=== PATIENT | male | born 1930 | race Caucasian/White ===

== ENCOUNTER 2017-05-05 14:43 | Inpatient (IN) | payer BC ==
[2017-05-05 15:12] LABS: AGAP ISTAT 21 mmol/L (6-14); BUN ISTAT 30 mg/dL (8-26); CHLORIDE ISTAT 103 mmol/L (98-110); CREATININE ISTAT 1.5 mg/dL (0.5-1.4); GLUCOSE ISTAT 110 mg/dL (70-99); HEMATOCRIT ISTAT 42 % (37-52); HEMOGLOBIN ISTAT 14.3 g/dL (14-18); ION CA ISTAT 1.26 mmol/L (1.13-1.32); POTASSIUM ISTAT 4.3 mmol/L (3.5-5.0); SODIUM ISTAT 143 mmol/L (135-145); TOT CO2 ISTAT 25 mmol/L (23-32)
[2017-05-05 15:15] LABS: ADD MAN DIFF? NO
[2017-05-05 15:18] LABS: BASO % 1 % (0-3); EOS # 0.2 x10^3/uL (0.0-0.7); EOS % 2 % (0-3); HEMATOCRIT 42.3 % (39.0-53.0); HEMOGLOBIN 14.4 g/dL (13.0-17.5); LYMPH # 1.8 x10^3/uL (1.0-4.8); LYMPH % 23 % (24-48); MEAN CORPUSCULAR HEMOGLOBIN 33 pg (25-35); MEAN CORPUSCULAR HGB CONC 34 g/dL (31-37); MEAN CORPUSCULAR VOLUME 95 fL (79-100); MONO % 12 % (0-9); NEUT # 5.1 x10^3uL (1.8-7.7); NEUT % 63 % (31-73); PLATELET COUNT 186 x10^3/uL (140-400); RED BLOOD COUNT 4.44 x10^6/uL (4.30-5.70); RED CELL DISTRIBUTION WIDTH 13.6 % (11.5-14.5); WHITE BLOOD COUNT 8.1 x10^3/uL (4.0-11.0)
[2017-05-05 15:24] LABS: PARTIAL THROMBOPLASTIN TIME 26 SEC (24-38); PROTHROMBIN TIME PATIENT 12.9 SEC (11.7-14.0)
[2017-05-05] MEDS: IV NORMAL SALINE 1000ML BAG 1,000 ML IV ×2 (15:25→16:47)
[2017-05-05 15:27] LABS: ANION GAP 10 (6-14); BLOOD UREA NITROGEN 31 mg/dL (8-26); BUN/CREATININE RATIO 22 (6-20); CALCIUM 9.9 mg/dL (8.5-10.1); CARBON DIOXIDE 27 mmol/L (21-32); CHLORIDE 103 mmol/L (98-107); CREATININE 1.4 mg/dL (0.7-1.3); GFR 48.3; GLUCOSE 113 mg/dL (70-99); POTASSIUM 4.2 mmol/L (3.5-5.1); SODIUM 140 mmol/L (136-145)
[2017-05-05] MEDS ORDERED: CONTRAST GIVEN MC (15:30)
[2017-05-05 15:33] LABS: ALBUMIN 3.9 g/dL (3.4-5.0); ALK PHOS 94 U/L (46-116); ALT (SGPT) 35 U/L (16-63); AST (SGOT) 21 U/L (15-37); MAGNESIUM 1.9 mg/dL (1.8-2.4); TOTAL BILIRUBIN 0.4 mg/dL (0.2-1.0); TOTAL PROTEIN 7.8 g/dL (6.4-8.2)
[2017-05-05] MEDS: IOHEXOL 300 MG/ML 100ML VIAL. IV (15:35)
[2017-05-05 15:55] LABS: BILIRUBIN,URINE NEGATIVE (NEG); CLARITY,URINE CLEAR; COLOR,URINE YELLOW; GLUCOSE,URINE NEGATIVE (NEG); NITRITE,URINE NEGATIVE (NEG); PH,URINE 5.5; PROTEIN,URINE NEGATIVE (NEG-TRACE); UROBILINOGEN,URINE 0.2 mg/dL (0.2 mg/dL)
[2017-05-05 16:17] LABS: BACTERIA,URINE 0 /HPF (0-FEW)
[2017-05-05 16:18] LABS: GRANULAR CASTS,URINE OCCASIONAL /HPF; HYALINE CASTS, URINE MANY /HPF
[2017-05-05] MEDS ORDERED: ACETAMINOPHEN 325 MG TABLET. PO ×2 (16:30→17:00)
[2017-05-05] MEDS ORDERED: ACETAMINOPHEN 650 MG SUPP.RECT. PR (16:30)
[2017-05-05] MEDS ORDERED: LABETALOL 20 MG/4 ML DISP.SYRIN. IVP (16:30)
[2017-05-05] MEDS ORDERED: IV NORMAL SALINE 1000ML BAG 1,000 ML IV (16:56)
[2017-05-05] MEDS ORDERED: ONDANSETRON PF 4 MG/2 ML VIAL. IV (17:00)
[2017-05-05] MEDS ORDERED: DEXTROSE 50% 25 GM / 50ML DISP.SYRIN. IV (17:45)
[2017-05-05 17:49] LABS: POC GLUCOSE 102 mg/dL (70-99)
[2017-05-05] MEDS: SIMVASTATIN 10 MG TABLET PO (20:19)
[2017-05-05] MEDS: ENOXAPARIN 30 MG/0.3 ML SYRINGE. SQ (20:48)
[2017-05-05 21:21] LABS: POC GLUCOSE 103 mg/dL (70-99)
[2017-05-06] MEDS: IV NORMAL SALINE 1000ML BAG 1,000 ML IV ×3 (02:28→22:28)
[2017-05-06 05:25] LABS: ADD MAN DIFF? NO
[2017-05-06 05:34] LABS: BASO % 0 % (0-3); EOS # 0.2 x10^3/uL (0.0-0.7); EOS % 3 % (0-3); HEMATOCRIT 38.1 % (39.0-53.0); HEMOGLOBIN 13.1 g/dL (13.0-17.5); LYMPH # 1.7 x10^3/uL (1.0-4.8); LYMPH % 24 % (24-48); MEAN CORPUSCULAR HEMOGLOBIN 32 pg (25-35); MEAN CORPUSCULAR HGB CONC 34 g/dL (31-37); MEAN CORPUSCULAR VOLUME 94 fL (79-100); MONO # 0.8 x10^3/uL (0.0-1.1); MONO % 11 % (0-9); NEUT # 4.2 x10^3uL (1.8-7.7); NEUT % 61 % (31-73); PLATELET COUNT 138 x10^3/uL (140-400); RED BLOOD COUNT 4.04 x10^6/uL (4.30-5.70); RED CELL DISTRIBUTION WIDTH 13.6 % (11.5-14.5); WHITE BLOOD COUNT 6.9 x10^3/uL (4.0-11.0)
[2017-05-06 06:22] LABS: ANION GAP 9 (6-14); BLOOD UREA NITROGEN 24 mg/dL (8-26); CALCIUM 8.5 mg/dL (8.5-10.1); CARBON DIOXIDE 25 mmol/L (21-32); CHLORIDE 106 mmol/L (98-107); CHOLESTEROL 136 mg/dL (0-200); GFR 71.2; GLUCOSE 108 mg/dL (70-99); HDLC 25 mg/dL (40-60); LDLC 81 mg/dL (0-100); NON-HDL CHOLESTEROL 111 mg/dL (0-129); POTASSIUM 3.6 mmol/L (3.5-5.1); SODIUM 140 mmol/L (136-145); TRIGLYCERIDES 149 mg/dL (0-150); VLDLC 30 mg/dL (0-40)
[2017-05-06 06:23] LABS: CHOLESTEROL/HDL RATIO 5.4
[2017-05-06 08:26] LABS: POC GLUCOSE 105 mg/dL (70-99)
[2017-05-06] MEDS: ASPIRIN 325 MG TABLET PO (10:27)
[2017-05-06] MEDS: hydroCHLOROthiazide 12.5 MG CAPSULE PO (10:27)
[2017-05-06] MEDS: METOPROLOL SUCC 24HR ER 50 MG TAB.ER.24H. PO (10:28)
[2017-05-06] MEDS ORDERED: BARIUM SULFATE 40% (APPLE) 148 GM PWD. PO (11:45)
[2017-05-06 12:16] LABS: POC GLUCOSE 146 mg/dL (70-99)
[2017-05-06] MEDS: risperiDONE 0.25 MG TABLET. PO ×2 (14:30→20:42)
[2017-05-06] MEDS: ENOXAPARIN 40 MG/0.4 ML SYRINGE. SQ (16:00)
[2017-05-06] MEDS: HALOPERIDOL LACTATE 5 MG/ML VIAL. IVP (16:00)
[2017-05-06 19:50] LABS: POC GLUCOSE 103 mg/dL (70-99)
[2017-05-06] MEDS: ATORVASTATIN CALCIUM 10 MG TABLET. PO (20:42)
[2017-05-07 05:07] LABS: ADD MAN DIFF? NO
[2017-05-07 05:26] LABS: BASO % 0 % (0-3); EOS # 0.1 x10^3/uL (0.0-0.7); EOS % 2 % (0-3); HEMATOCRIT 38.1 % (39.0-53.0); HEMOGLOBIN 13.1 g/dL (13.0-17.5); LYMPH # 1.2 x10^3/uL (1.0-4.8); LYMPH % 20 % (24-48); MEAN CORPUSCULAR HEMOGLOBIN 32 pg (25-35); MEAN CORPUSCULAR HGB CONC 34 g/dL (31-37); MEAN CORPUSCULAR VOLUME 94 fL (79-100); MONO # 0.8 x10^3/uL (0.0-1.1); MONO % 14 % (0-9); NEUT # 3.9 x10^3uL (1.8-7.7); NEUT % 64 % (31-73); PLATELET COUNT 144 x10^3/uL (140-400); RED BLOOD COUNT 4.04 x10^6/uL (4.30-5.70); RED CELL DISTRIBUTION WIDTH 13.4 % (11.5-14.5); WHITE BLOOD COUNT 6.1 x10^3/uL (4.0-11.0)
[2017-05-07 05:53] LABS: ALBUMIN 3.4 g/dL (3.4-5.0); ALK PHOS 86 U/L (46-116); ALT (SGPT) 18 U/L (16-63); ANION GAP 11 (6-14); AST (SGOT) 22 U/L (15-37); BLOOD UREA NITROGEN 18 mg/dL (8-26); BUN/CREATININE RATIO 16 (6-20); CALCIUM 9.2 mg/dL (8.5-10.1); CARBON DIOXIDE 24 mmol/L (21-32); CHLORIDE 102 mmol/L (98-107); CREATININE 1.1 mg/dL (0.7-1.3); GFR 63.8; GLUCOSE 115 mg/dL (70-99); POTASSIUM 3.4 mmol/L (3.5-5.1); SODIUM 137 mmol/L (136-145); TOTAL BILIRUBIN 0.7 mg/dL (0.2-1.0); TOTAL PROTEIN 6.9 g/dL (6.4-8.2)
[2017-05-07] MEDS: IV NORMAL SALINE 1000ML BAG 1,000 ML IV ×2 (07:55→18:28)
[2017-05-07 09:21] LABS: POC GLUCOSE 129 mg/dL (70-99)
[2017-05-07 11:56] LABS: POC GLUCOSE 143 mg/dL (70-99)
[2017-05-07] MEDS: BARIUM SULFATE 40% (APPLE) 148 GM PWD. PO (13:08)
[2017-05-07] MEDS: METOPROLOL SUCC 24HR ER 50 MG TAB.ER.24H. PO (14:21)
[2017-05-07] MEDS: ASPIRIN 325 MG TABLET PO (14:21)
[2017-05-07] MEDS: hydroCHLOROthiazide 12.5 MG CAPSULE PO (14:21)
[2017-05-07] MEDS: ENOXAPARIN 40 MG/0.4 ML SYRINGE. SQ (14:54)
[2017-05-07] MEDS: metFORMIN 500 MG TABLET PO (17:00)
[2017-05-07 20:46] LABS: POC GLUCOSE 123 mg/dL (70-99)
[2017-05-07 20:46] LABS: POC GLUCOSE 136 mg/dL (70-99)
[2017-05-07] MEDS: ATORVASTATIN CALCIUM 10 MG TABLET. PO (20:57)
[2017-05-08] MEDS: IV NORMAL SALINE 1000ML BAG 1,000 ML IV ×2 (04:28→14:00)
[2017-05-08 08:17] LABS: POC GLUCOSE 105 mg/dL (70-99)
[2017-05-08] MEDS: hydroCHLOROthiazide 12.5 MG CAPSULE PO (09:12)
[2017-05-08] MEDS: ASPIRIN 325 MG TABLET PO (09:12)
[2017-05-08] MEDS: metFORMIN 500 MG TABLET PO (09:12)
[2017-05-08] MEDS: METOPROLOL SUCC 24HR ER 50 MG TAB.ER.24H. PO (09:12)
[2017-05-08 12:04] LABS: POC GLUCOSE 133 mg/dL (70-99)
== END 2017-05-08 14:16 | DRG 64 ==
LOC: ER 14:43 → 6 SOUTH 16:15
PROVIDERS: Family Medicine
DX: I63.9 Cerebral infarction, unspecified (principal); G93.40 Encephalopathy, unspecified; E11.9 Type 2 diabetes mellitus without complications; G30.9 Alzheimer's disease, unspecified; F02.80 Dementia in other diseases classified elsewhere, unspecified severity, without behavioral disturbance, psychotic disturbance, mood disturbance, and anxiety; I71.4 Abdominal aortic aneurysm, without rupture; Z86.73 Personal history of transient ischemic attack (TIA), and cerebral infarction without residual deficits; I10 Essential (primary) hypertension; I25.10 Atherosclerotic heart disease of native coronary artery without angina pectoris; E78.00 Pure hypercholesterolemia, unspecified; I25.2 Old myocardial infarction; E78.5 Hyperlipidemia, unspecified; G83.9 Paralytic syndrome, unspecified; R29.810 Facial weakness; R13.10 Dysphagia, unspecified
CPT/HCPCS: 36415; 70450; 70496; 70498; 70551; 74230; 80047; 80048; 80053; 80061; 81001; 82962; 83735; 85025; 85610; 85730; 92526-GN; 92610-GN; 92611-GN; 93005; 93306; 96360; 97110-GP; 97116-GP; 97162-GP; 97166-GO; 99291; 99291-25; J1650; J7030; Q9967

== ENCOUNTER 2017-11-11 10:49 | Emergency (ER) | payer BC ==
[~2017-11-11] VITALS: Ht 175.3 cm; Wt 75.7 kg
[~2017-11-11 10:49] MED LIST: ATEN100T PO; HYDR12.58 PO; LOVA40TA2 PO; METF500T5 PO; METO50TA29 PO
[2017-11-11 11:11] LABS: BASO # 0.1 x10^3/uL (0.0-0.2); BASO % 1 % (0-3); EOS # 0.2 x10^3/uL (0.0-0.7); EOS % 2 % (0-3); HEMATOCRIT 47.5 % (39.0-53.0); HEMOGLOBIN 16.2 g/dL (13.0-17.5); LYMPH # 1.9 x10^3/uL (1.0-4.8); LYMPH % 17 % (24-48); MEAN CORPUSCULAR HEMOGLOBIN 32 pg (25-35); MEAN CORPUSCULAR HGB CONC 34 g/dL (31-37); MEAN CORPUSCULAR VOLUME 94 fL (79-100); MONO # 0.8 x10^3/uL (0.0-1.1); MONO % 8 % (0-9); NEUT # 8.2 x10^3uL (1.8-7.7); NEUT % 73 % (31-73); PLATELET COUNT 218 x10^3/uL (140-400); RED BLOOD COUNT 5.03 x10^6/uL (4.30-5.70); RED CELL DISTRIBUTION WIDTH 14.4 % (11.5-14.5); WHITE BLOOD COUNT 11.2 x10^3/uL (4.0-11.0)
[2017-11-11] MEDS ORDERED: IV NORMAL SALINE 1000ML BAG 1,000 ML IV ONE (11:15)
[2017-11-11 11:21] LABS: CALCIUM 10.1 mg/dL (8.5-10.1); CREATININE 1.3 mg/dL (0.7-1.3); GFR 52.6; POTASSIUM 4.2 mmol/L (3.5-5.1)
[2017-11-11 11:27] LABS: ALBUMIN 4.1 g/dL (3.4-5.0); ALBUMIN/GLOBULIN RATIO 1.2 (1.0-1.7); MAGNESIUM 1.9 mg/dL (1.8-2.4); TOTAL BILIRUBIN 1.2 mg/dL (0.2-1.0); TOTAL PROTEIN 7.5 g/dL (6.4-8.2)
--- NOTE | 2017-11-11 11:39 | RAD ---
EXAM: 1. AP, radial head and lateral views of the left elbow 2. 3 views left shoulder DATE: 11/11/2017 11:13 AM INDICATION: Pt fell 1 month ago per family, having pain in elbow and shoulder COMPARISON: No Prior FINDINGS: Left elbow: Suboptimal lateral projection limits evaluation for joint effusion. Within these constraints no definite joint effusion is seen. No evidence for acute fracture or dislocation. Mild soft tissue swelling is seen dorsally adjacent to the olecranon enthesophyte. Left shoulder: No evidence of acute fracture or dislocation. Moderate soft tissue swelling is seen about the left AC joint. Decreased bone mineral density. IMPRESSION: 1. No evidence for left elbow or left shoulder fracture. 2. Olecranon enthesopathy. 3. Left AC joint degenerative change. Electronically signed by: Crow Arriaga MD (11/11/2017 11:35 AM) [id number]
[2017-11-11 13:05] LABS: BILIRUBIN,URINE SMALL (NEG); CLARITY,URINE CLEAR; COLOR,URINE AMBER; NITRITE,URINE NEGATIVE (NEG); PROTEIN,URINE 30 mg/dL (NEG-TRACE)
[2017-11-11 13:07] LABS: BACTERIA,URINE 0 /HPF (0-FEW); RBC,URINE RARE /HPF (0-2); SQUAMOUS EPITHELIAL CELL,UR FEW /LPF; WBC,URINE RARE /HPF (0-4)
--- NOTE | 2017-11-11 13:32 | EKG ---
[facility] [address] [place] [address] Test Date: 2017-11-11 Test Time: 11:00:09 Pat Name: CASTILLO GARDNER Department: Room: Gender: M Diploma Pharmacy Technician: : [id number] Requested By: KISHORE CASILLAS Order Number: [id number] Reading MD: Galen Gatica MD Measurements Intervals [place] Rate: 98 P: 50 NM: 184 QRS: -44 QRSD: 100 T: 49 QT: 348 QTc: 446 Interpretive Statements SINUS RHYTHM VENTRICULAR PREMATURE COMPLEX(ES) Electronically Signed On 11-12-2017 7:40:12 CDT by Galen Gatica MD
--- NOTE | 2017-11-11 13:53 | PHYS DOC ---
Past Medical History Past Medical History: CAD, CVA, High Cholesterol, Hypertension, Stroke Past Surgical History: Angioplasty Alcohol Use: Occasionally Drug Use: None Adult General Chief Complaint Chief Complaint: WEAKNESS/GENERALIZED HPI HPI Patient is an 86-year-old male who presents via EMS after reportedly falling early this morning. Patient's [id number] indicates that when she got to his house to bring him breakfast, she had noticed that he had fallen. Patient was feeling weak and medics were called for assistance in getting patient up. Medics indicate that patient was able to ambulate with minimal assistance. They did indicate the patient was a little bit wobbly on his feet when he was walking however. Patient does complain of pain in his left elbow and left shoulder from an injury from 3 weeks ago. Patient had no head injury and no loss of consciousness. He denies any chest pain or shortness of breath. Patient' s ibyqmz-on-mvn indicates the patient has been having a decreased appetite over the last few years due to his passing away. She does indicate that he drinks a little bit more alcohol and thinks that that might be why he eats less. Review of Systems Review of Systems Constitutional: Denies fever or chills [] Respiratory: Denies cough or shortness of breath [] Cardiovascular: Denies chest pain[] GI: Denies abdominal pain, nausea, vomiting or diarrhea [] Musculoskeletal: Complains of left elbow and left shoulder pain[] Integument: Denies rash or skin lesions [] Neurologic: Denies headache, focal weakness or sensory changes [] All other systems were reviewed and found to be within normal limits, except as documented in this note. Current Medications Current Medications Current Medications Medications (Trade) Dose Ordered Sig/Esperanza Start Time Stop Time Status Last Admin Dose Admin Sodium Chloride 1,000 ml @ 1,000 mls/hr 1X ONCE 11/11/17 11:15 11/11/17 12:14 DC 11/11/17 11:09 1,000 MLS/HR Allergies Allergies Allergies Coded Allergies Type Severity Reaction Last Updated Verified No Known Drug Allergies 05/05/17 No Physical Exam Physical Exam Constitutional: Well developed, well nourished, no acute distress, non-toxic appearance. [] HENT: Normocephalic, atraumatic, bilateral external ears normal, oropharynx moist, no oral exudates, nose normal. [] Eyes: PERRLA, EOMI, conjunctiva normal, no discharge. [] Neck: Normal range of motion, no tenderness, supple, no stridor. [] Cardiovascular:Heart rate regular rhythm [] Lungs & Thorax: Bilateral breath sounds clear to auscultation [] Abdomen: Bowel sounds normal, soft, no tenderness. [] Skin: Warm, dry, no erythema, no rash. [] Extremities: Left elbow demonstrates abrasion that is healing well. There is tenderness to palpation to the elbow. Left shoulder demonstrates slightly decreased range of motion due to pain but no palpable deformity/abnormality noted. [] Neurologic: Awake and alert, normal motor function, normal sensory function, no focal deficits noted. [] Current Patient Data Vital Signs Vital Signs Date Time Temp Pulse Resp B/P (MAP) Pulse Ox O2 Delivery O2 Flow Rate FiO2 11/11/17 13:22 74 26 95 11/11/17 10:49 98.3 178/98 (124) Room Air 98.3 Lab Values Laboratory Tests Test 11/11/17 11:05 11/11/17 12:27 White Blood Count 11.2 x10^3/uL (4.0-11.0) H Red Blood Count 5.03 x10^6/uL (4.30-5.70) Hemoglobin 16.2 g/dL (13.0-17.5) Hematocrit 47.5 % (39.0-53.0) Mean Corpuscular Volume 94 fL (79-100) Mean Corpuscular Hemoglobin 32 pg (25-35) Mean Corpuscular Hemoglobin Concent 34 g/dL (31-37) Red Cell Distribution Width 14.4 % (11.5-14.5) Platelet Count 218 x10^3/uL (140-400) Neutrophils (%) (Auto) 73 % (31-73) Lymphocytes (%) (Auto) 17 % (24-48) L Monocytes (%) (Auto) 8 % (0-9) Eosinophils (%) (Auto) 2 % (0-3) Basophils (%) (Auto) 1 % (0-3) Neutrophils # (Auto) 8.2 x10^3uL (1.8-7.7) H Lymphocytes # (Auto) 1.9 x10^3/uL (1.0-4.8) Monocytes # (Auto) 0.8 x10^3/uL (0.0-1.1) Eosinophils # (Auto) 0.2 x10^3/uL (0.0-0.7) Basophils # (Auto) 0.1 x10^3/uL (0.0-0.2) Sodium Level 137 mmol/L (136-145) Potassium Level 4.2 mmol/L (3.5-5.1) Chloride Level 99 mmol/L (98-107) Carbon Dioxide Level 27 mmol/L (21-32) Anion Gap 11 (6-14) Blood Urea Nitrogen 19 mg/dL (8-26) Creatinine 1.3 mg/dL (0.7-1.3) Estimated GFR (Cockcroft-Gault) 52.6 BUN/Creatinine Ratio 15 (6-20) Glucose Level 172 mg/dL (70-99) H Calcium Level 10.1 mg/dL (8.5-10.1) Magnesium Level 1.9 mg/dL (1.8-2.4) Total Bilirubin 1.2 mg/dL (0.2-1.0) H Aspartate Amino Transferase (AST) 43 U/L (15-37) H Alanine Aminotransferase (ALT) 29 U/L (16-63) Alkaline Phosphatase 88 U/L (46-116) Troponin I Quantitative < 0.017 ng/mL (0.000-0.055) Total Protein 7.5 g/dL (6.4-8.2) Albumin 4.1 g/dL (3.4-5.0) Albumin/Globulin Ratio 1.2 (1.0-1.7) Ethyl Alcohol Level < 10 mg/dL (0-10) Urine Collection Type Void Urine Color Mia Urine Clarity Clear Urine pH 6.0 Urine Specific [place] 1.025 Urine Protein 30 mg/dL (NEG-TRACE) Urine Glucose (UA) Negative mg/dL (NEG) Urine Ketones (Stick) 40 mg/dL (NEG) Urine Blood Negative (NEG) Urine Nitrite Negative (NEG) Urine Bilirubin Small (NEG) Urine Urobilinogen Dipstick 1.0 mg/dL (0.2 mg/dL) Urine Leukocyte Esterase Negative (NEG) Urine RBC Rare /HPF (0-2) Urine WBC Rare /HPF (0-4) Urine Squamous Epithelial Cells Few /LPF Urine Bacteria 0 /HPF (0-FEW) Urine Mucus Marked /LPF Laboratory Tests 11/11/17 11:05 Laboratory Tests 11/11/17 11:05 EKG EKG [] Interpretation Time: EKG demonstrates a normal sinus rhythm with rate of 98. There is a first-degree AV block. Radiology/Procedures Radiology/Procedures [] Impressions: X-ray imaging of left elbow and shoulder demonstrates no acute bony abnormalities. Course & Med Decision Making Course & Med Decision Making Pertinent Labs and Imaging studies reviewed. (See chart for details) [] Dragon Disclaimer Dragon Disclaimer This electronic medical record was generated, in whole or in part, using a voice recognition dictation system. Departure Departure Impression: Primary Impression: Generalized weakness Additional Impression: Left elbow contusion Disposition: HOME, SELF-CARE Condition: STABLE Referrals: ADI HARRISON MD (PCP) Patient Instructions: Contusion, Weakness Additional Instructions: Follow-up with primary care provider in the next few days. I would recommend use of walker at home. Problem Qualifiers Additional Impression: Left elbow contusion Encounter type: initial encounter Qualified Codes: S50.02XA - Contusion of left elbow, initial encounter KISHORE CASILLAS Jr. DO Nov 11, 2017 13:53
[2017-11-11 14:52] VITALS: BP 141/67
== END 2017-11-11 15:30 | disposition home or self-care (01) ==
LOC: ER 10:49
DX: S50.02XA Contusion of left elbow, initial encounter (principal); M25.512 Pain in left shoulder; R63.0 Anorexia; R53.1 Weakness; E78.00 Pure hypercholesterolemia, unspecified; I10 Essential (primary) hypertension; Z86.73 Personal history of transient ischemic attack (TIA), and cerebral infarction without residual deficits; I25.10 Atherosclerotic heart disease of native coronary artery without angina pectoris; Z95.5 Presence of coronary angioplasty implant and graft; W18.39XA Other fall on same level, initial encounter; Y93.89 Activity, other specified; Y92.89 Other specified places as the place of occurrence of the external cause; Y99.8 Other external cause status
CPT/HCPCS: 36415; 73030; 73080; 80053; 81001; 83735; 84484; 85025; 93005; 99285; G0480; J7030; 96360

== ENCOUNTER 2018-10-26 15:22 | Inpatient (IN) | payer BC, OTHER ==
[~2018-10-26] VITALS: Ht 172.7 cm; Wt 62.8 kg
[~2018-10-26 15:22] MED LIST changes: +ACET500T68 PO; +ASPI-612 PO; +ASPI325T8 PO; +CHOL500016 PO; +ESCITALOPRAM OX10 MG PO; +LORA0.5T96 PO; +METF500T16 PO; -METF500T5 PO; +METO-239 PO; +POTA20TA4 PO
--- NOTE | 2018-10-26 15:46 | PHYS DOC ---
Past Medical History Past Medical History: CAD, CVA, Diabetes-Type II, High Cholesterol, Hypertension, ID, Stroke Past Surgical History: Angioplasty Additional Past Surgical Histo: angioplasty Alcohol Use: Rarely Drug Use: None Adult General Chief Complaint Chief Complaint: WEAKNESS/GENERALIZED HPI HPI Patient is a 87 year old male, brought to the ER via EMS from his doctor's office with reports of n/v today and concerns of sepsis. Pt speaks very little [place]. He denies any complaints of pain at this time. He denies any shortness of breath. Per EMS pt has a hx of ID, CVA, HTN, and DM2. ROS Limited due to language barrier. Pt denies any pain, fever, and shortness of breath. 1700- per patient's sister, the patient speaks Japanese. She states that the patient has been very weak and not wanting to get out of bed recently. She states that he constantly soils his PMs and 90 he has redness to his right hip and right buttock. She denies any open sores, recent fevers, nausea, vomiting, diarrhea, or complaints of abdominal pain. She states that the patient has had a decreased appetite. Review of Systems Review of Systems Constitutional: Denies fever or chills [] Eyes: Denies change in visual acuity, redness, or eye pain [] HENT: Denies nasal congestion or sore throat [] Respiratory: Denies cough or shortness of breath [] Cardiovascular: No additional information not addressed in HPI [] GI: Denies abdominal pain, nausea, vomiting, bloody stools or diarrhea [] : Denies dysuria or hematuria [] Musculoskeletal: Denies back pain or joint pain [] Integument: Denies rash or skin lesions [] Neurologic: Denies headache, focal weakness or sensory changes [] Endocrine: Denies polyuria or polydipsia [] All other systems were reviewed and found to be within normal limits, except as documented in this note. Current Medications Current Medications Current Medications Medications (Trade) Dose Ordered Sig/Esperanza Start Time Stop Time Status Last Admin Dose Admin Ceftriaxone Sodium (Rocephin) 1 gm 1X ONCE 10/26/18 18:15 10/26/18 18:16 DC 10/26/18 19:22 1 GM Sodium Chloride 1,000 ml @ 1,000 mls/hr 1X ONCE 10/26/18 17:15 10/26/18 18:14 DC 10/26/18 17:44 1,000 MLS/HR Allergies Allergies Allergies Coded Allergies Type Severity Reaction Last Updated Verified No Known Drug Allergies 05/05/17 No Physical Exam Physical Exam Constitutional: Well developed, well nourished, no acute distress, non-toxic appearance. [] HENT: Normocephalic, atraumatic, bilateral external ears normal, oropharynx dry, no oral exudates, nose normal. [] Eyes: conjunctiva normal, no discharge. [] Neck: Normal range of motion, no stridor. [] Cardiovascular:Heart rate regular rhythm Lungs & Thorax: Bilateral breath sounds clear to auscultation [] Abdomen: Bowel sounds normal, soft, no tenderness, no masses, no pulsatile masses. [] Skin: Warm, dry, erythema noted to R hip and R buttock that blanches with palpation Back: No tenderness, no CVA tenderness. [] Extremities: No cyanosis, no clubbing, ROM intact, no edema. [] Neurologic: Alert and oriented X 3, no focal deficits noted. [] Psychologic: Affect normal, judgement normal, mood normal. [] Current Patient Data Vital Signs Vital Signs Date Time Temp Pulse Resp B/P (MAP) Pulse Ox O2 Delivery O2 Flow Rate FiO2 10/26/18 17:56 81 16 95 10/26/18 15:34 98.8 180/80 (113) Nasal Cannula 2.0 98.8 Lab Values Laboratory Tests Test 10/26/18 15:30 10/26/18 17:19 White Blood Count 11.9 x10^3/uL (4.0-11.0) H Red Blood Count 4.80 x10^6/uL (4.30-5.70) Hemoglobin 15.3 g/dL (13.0-17.5) Hematocrit 45.6 % (39.0-53.0) Mean Corpuscular Volume 95 fL (79-100) Mean Corpuscular Hemoglobin 32 pg (25-35) Mean Corpuscular Hemoglobin Concent 34 g/dL (31-37) Red Cell Distribution Width 14.0 % (11.5-14.5) Platelet Count 239 x10^3/uL (140-400) Neutrophils (%) (Auto) 79 % (31-73) H Lymphocytes (%) (Auto) 13 % (24-48) L Monocytes (%) (Auto) 7 % (0-9) Eosinophils (%) (Auto) 0 % (0-3) Basophils (%) (Auto) 1 % (0-3) Neutrophils # (Auto) 9.3 x10^3/uL (1.8-7.7) H Lymphocytes # (Auto) 1.5 x10^3/uL (1.0-4.8) Monocytes # (Auto) 0.8 x10^3/uL (0.0-1.1) Eosinophils # (Auto) 0.0 x10^3/uL (0.0-0.7) Basophils # (Auto) 0.1 x10^3/uL (0.0-0.2) Prothrombin Time 13.6 SEC (11.7-14.0) Prothrombin Time INR 1.1 (0.8-1.1) Activated Partial Thromboplast Time 26 SEC (24-38) Sodium Level 144 mmol/L (136-145) Potassium Level 4.0 mmol/L (3.5-5.1) Chloride Level 104 mmol/L (98-107) Carbon Dioxide Level 26 mmol/L (21-32) Anion Gap 14 (6-14) Blood Urea Nitrogen 26 mg/dL (8-26) Creatinine 1.8 mg/dL (0.7-1.3) H Estimated GFR (Cockcroft-Gault) 36.0 BUN/Creatinine Ratio 14 (6-20) Glucose Level 177 mg/dL (70-99) H Lactic Acid Level 4.0 mmol/L (0.4-2.0) *H Calcium Level 10.5 mg/dL (8.5-10.1) H Magnesium Level 1.7 mg/dL (1.8-2.4) L Total Bilirubin 1.0 mg/dL (0.2-1.0) Aspartate Amino Transferase (AST) 17 U/L (15-37) Alanine Aminotransferase (ALT) 19 U/L (16-63) Alkaline Phosphatase 96 U/L (46-116) Creatine Kinase 54 U/L (39-308) Creatine Kinase MB (Mass) 0.7 ng/mL (0.0-3.6) Creatine Kinase MB Relative Index % (0-4) Myoglobin 77 ng/mL (16-96) Troponin I Quantitative < 0.017 ng/mL (0.000-0.055) IY-Lyw-C-Type Natriuretic Peptide 439 pg/mL (0-449) Total Protein 8.3 g/dL (6.4-8.2) H Albumin 4.1 g/dL (3.4-5.0) Albumin/Globulin Ratio 1.0 (1.0-1.7) Lipase 90 U/L (73-393) Urine Collection Type U cath Urine Color Mia Urine Clarity Clear Urine pH 5.0 Urine Specific [place] 1.020 Urine Protein 30 mg/dL (NEG-TRACE) Urine Glucose (UA) Negative mg/dL (NEG) Urine Ketones (Stick) 15 mg/dL (NEG) Urine Blood Large (NEG) Urine Nitrite Negative (NEG) Urine Bilirubin Small (NEG) Urine Urobilinogen Dipstick 1.0 mg/dL (0.2 mg/dL) Urine Leukocyte Esterase Negative (NEG) Urine RBC >40 /HPF (0-2) Urine WBC 20-40 /HPF (0-4) Urine Squamous Epithelial Cells Few /LPF Urine Amorphous Sediment Present /HPF Urine Bacteria Moderate /HPF (0-FEW) Urine Hyaline Casts Few /HPF Urine Mucus Mod /LPF Laboratory Tests 10/26/18 15:30 Laboratory Tests 10/26/18 15:30 EKG EKG 1528- SR with prolonged HI, non-specific ST depression, rate 71, no STEMI read by Dr. Cruz[] Radiology/Procedures Radiology/Procedures PROCEDURE: CHEST AP ONLY EXAM: Chest, single view. HISTORY: Hypoxia. COMPARISON: 03/07/2012 FINDINGS: A frontal view of the chest is obtained. There is no infiltrate, pleural effusion or pneumothorax. There is suspected lower lobe predominant atelectasis. The heart is normal in size. There are calcified granulomas. IMPRESSION: No acute pulmonary finding. [] Course & Med Decision Making Course & Med Decision Making Pertinent Labs and Imaging studies reviewed. (See chart for details) dx uti, WEAKNESS, lactic acidosis Pt was given 1L of NS and 1 gm of IV rocephin in the ER. VSS. SIRS criteria not met. WBC 11.9, no bandemia; PT/INR normal, Pals Nurse 1.8, glucose 177, calcium 10.5, magnesium 1.7, BNP 439; UA 20-40 WBC, moderate bacteria, large blood, few squamous 1818- Spoke with DR. Shearer will admit patient for UTI, weakness, and lactic acidosis to med/surg, Pt does not meet SIRS criteria. Will add blood and urine myoglobin and 3 hour repeat of lactic acid. Blood cx x2 if fever over 100.5 [] Dragon Disclaimer Dragon Disclaimer This electronic medical record was generated, in whole or in part, using a voice recognition dictation system. Departure Departure Impression: Primary Impression: Lactic acidosis Additional Impressions: UTI (urinary tract infection) Weakness Disposition: 09 ADMITTED INPATIENT Admitting Physician: Ny Shearer Condition: STABLE Referrals: ADI HARRISON MD (PCP) Problem Qualifiers Additional Impressions: UTI (urinary tract infection) Urinary tract infection type: site unspecified Hematuria presence: with hematuria Qualified Codes: N39.0 - Urinary tract infection, site not specified; R31.9 - Hematuria, unspecified MATILDA BECK ORDER PACKER OR PACKAGER Oct 26, 2018 15:46
[2018-10-26 15:48] LABS: BASO # 0.1 x10^3/uL (0.0-0.2); BASO % 1 % (0-3); EOS % 0 % (0-3); HEMATOCRIT 45.6 % (39.0-53.0); HEMOGLOBIN 15.3 g/dL (13.0-17.5); LYMPH # 1.5 x10^3/uL (1.0-4.8); LYMPH % 13 % (24-48); MEAN CORPUSCULAR HEMOGLOBIN 32 pg (25-35); MEAN CORPUSCULAR HGB CONC 34 g/dL (31-37); MEAN CORPUSCULAR VOLUME 95 fL (79-100); MONO # 0.8 x10^3/uL (0.0-1.1); MONO % 7 % (0-9); NEUT # 9.3 x10^3/uL (1.8-7.7); NEUT % 79 % (31-73); PLATELET COUNT 239 x10^3/uL (140-400); WHITE BLOOD COUNT 11.9 x10^3/uL (4.0-11.0)
[2018-10-26 15:58] LABS: PROTHROMBIN TIME PATIENT 13.6 SEC (11.7-14.0)
--- NOTE | 2018-10-26 16:02 | RAD ---
EXAM: Chest, single view. HISTORY: Hypoxia. COMPARISON: 03/07/2012 FINDINGS: A frontal view of the chest is obtained. There is no infiltrate, pleural effusion or pneumothorax. There is suspected lower lobe predominant atelectasis. The heart is normal in size. There are calcified granulomas. IMPRESSION: No acute pulmonary finding. Electronically signed by: Mahsa Sykes MD (10/26/2018 3:59 PM) [place] [id number]
[2018-10-26 16:15] LABS: CALCIUM 10.5 mg/dL (8.5-10.1); CREATININE 1.8 mg/dL (0.7-1.3)
[2018-10-26 16:21] LABS: ALBUMIN 4.1 g/dL (3.4-5.0); MAGNESIUM 1.7 mg/dL (1.8-2.4); TOTAL PROTEIN 8.3 g/dL (6.4-8.2)
[2018-10-26] MEDS ORDERED: IV NORMAL SALINE 1000ML BAG 1,000 ML IV ONE (17:15)
[2018-10-26 17:41] LABS: BILIRUBIN,URINE SMALL (NEG); CLARITY,URINE CLEAR; COLOR,URINE AMBER; NITRITE,URINE NEGATIVE (NEG); PROTEIN,URINE 30 mg/dL (NEG-TRACE)
[2018-10-26 17:48] LABS: CREATINE KINASE 54 U/L (39-308)
[2018-10-26 18:01] LABS: AMORPHOUS SEDIMENT,UR PRESENT /HPF; BACTERIA,URINE MODERATE /HPF (0-FEW); RBC,URINE >40 /HPF (0-2); SQUAMOUS EPITHELIAL CELL,UR FEW /LPF; WBC,URINE 20-40 /HPF (0-4)
[2018-10-26 18:02] LABS: HYALINE CASTS, URINE FEW /HPF
[2018-10-26] MEDS ORDERED: cefTRIAXone IV Push 1 GM VIAL. IVP ONE (18:15)
[2018-10-26 20:36] VITALS: BP 151/55
[2018-10-26] MEDS ORDERED: DONE10TA7 PO (21:02)
[2018-10-26] MEDS ORDERED: ASPI-630 PO (21:02)
[2018-10-26] MEDS ORDERED: ACETAMINOPHEN 500 MG TABLET PO PRN (21:15)
[2018-10-26] MEDS: DONEPEZIL HCL 10 MG TABLET. PO SCH (22:27)
[2018-10-26] MEDS: IV NORMAL SALINE 1000ML BAG 1,000 ML IV SCH (22:27)
[2018-10-26 23:00] VITALS: BP 123/56
[2018-10-27 03:00] VITALS: BP 144/56
--- NOTE | 2018-10-27 06:19 | EKG ---
[facility] [address] [place] [address] Test Date: 2018-10-26 Test Time: 15:28:10 Pat Name: CASTILLO GARDNER Department: Room: Gender: M Procurement Engineer: : [id number] Requested By: MATILDA BECK Order Number: [id number] Reading MD: Measurements Intervals [place] Rate: 70 P: 59 GA: 246 QRS: -23 QRSD: 98 T: 49 QT: 410 QTc: 450 Interpretive Statements SINUS RHYTHM PROLONGED GA INTERVAL INDETERMINATE AXIS NON SPECIFIC ST DEPRESSION ABNORMAL ECG No previous ECG available for comparison
[2018-10-27 06:39] VITALS: BP 106/52
[2018-10-27] MEDS ORDERED: IV NORMAL SALINE 1000ML BAG 1,000 ML IV SCH (07:04)
[2018-10-27] MEDS ORDERED: LORazepam 0.5 MG TABLET PO PRN (07:15)
[2018-10-27] MEDS: ENOXAPARIN 30 MG/0.3 ML SYRINGE. SQ SCH (08:54)
[2018-10-27] MEDS: CHOLECALCIFEROL (VITAMIN D3) 5,000 UNIT CAPSULE PO SCH (08:54)
[2018-10-27] MEDS: CITALOPRAM 20 MG TABLET. PO SCH (08:54)
[2018-10-27] MEDS: POTASSIUM CHLORIDE 20 MEQ TABLET.ER. PO SCH (08:54)
[2018-10-27] MEDS: ASPIRIN CHEWABLE 81 MG TABLET. PO SCH (08:55)
[2018-10-27] MEDS: METOPROLOL SUCC 24HR ER 50 MG TAB.ER.24H. PO SCH (09:00)
--- NOTE | 2018-10-27 09:18 | NUR ---
IP: I was notified by nurse that Dr. Campa looked at skin pictures and diagnosed pt with probable scabies. Pt to be in contact precautions until 24 hours post treatment.
--- NOTE | 2018-10-27 09:33 | NUR ---
SW following pt for dc planning. Chart reviewed and pt lives home alone. PT/OT pending. SW will await for PT/OT recommendation to assess skilled needs.
[2018-10-27] MEDS: IV NORMAL SALINE 1000ML BAG 1,000 ML IV SCH (10:00)
[2018-10-27 11:00] VITALS: BP 108/44
--- NOTE | 2018-10-27 13:30 | HP ---
ADMIT DATE: ADMISSION HISTORY AND PHYSICAL CHIEF COMPLAINT: Weakness. HISTORY OF PRESENT ILLNESS AND HOSPITAL COURSE: This patient is an 87-year-old male who lives by himself, but is assisted and cared by a niece. He was found down for unknown period of time and came to the office for evaluation, was seen by Dr. Shearer and sent to the Emergency Room due to suspicions of rhabdomyolysis, renal failure and significant weakness with self-care deficits as well as suspected UTI. He was sent to the Emergency Room where he was evaluated and found to have evidence of acute renal failure as well as UTI. He was also found to have lactic acidosis. He was admitted for hydration, IV antibiotics and PT and OT modalities. PAST MEDICAL HISTORY: Significant for: 1. Hypertension. 2. Coronary artery disease. 3. Previous CVA. 4. Abdominal aortic aneurysm. 5. High cholesterol. 6. Type 2 diabetes. 7. Mild dementia. 8. Major depression. PAST SURGICAL HISTORY: The patient denies surgical history. History is obtained from chart. The patient is alert and oriented, but does have mild dementia. FAMILY HISTORY: Noncontributory. SOCIAL HISTORY: The patient has never smoked. He does not use alcohol. He is for the last 4 years. He has excellent support from neighborhood and niece. ALLERGIES: The patient has no known drug allergies. REVIEW OF SYSTEMS: The patient has had nearly 20-pound weight loss, has a baseline creatinine of 1.2. No fever, cough, congestion, leg swelling, or shortness of breath has been documented. PHYSICAL EXAMINATION: GENERAL: This is an alert -[place] male who was unable to communicate due to language barrier, but does have memory issues on previous exams. HEENT: Benign. NECK: Supple. CARDIAC: Regular rate and rhythm. LUNGS: Clear. ABDOMEN: Soft, nontender. EXTREMITIES: He had 2+ pulses without edema. NEUROLOGICAL: Showed no unilateral findings. ASSESSMENT: 1. Ipkaw-nl-lrhvcme renal failure. 2. Weight loss. 3. Debilitation. 4. Lactic acidosis. 5. Hypomagnesemia. 6. Hematuria, suspected urinary tract infection. PLAN: To proceed with IV hydration, PT and OT modalities, IV antibiotics and monitor the patient's symptoms. Proceed with long term and subsequent penitentiary care due to self-care deficits. ADI HARRISON MD DR: Andreina JOB#: [id number] / [id number]
[2018-10-27 15:00] VITALS: BP 123/56
[2018-10-27] MEDS: cefTRIAXone IV Push 1 GM VIAL. IVP SCH (18:04)
[2018-10-27 19:00] VITALS: BP 139/70
[2018-10-27] MEDS: DONEPEZIL HCL 10 MG TABLET. PO SCH (20:44)
[2018-10-27] MEDS: ATORVASTATIN CALCIUM 10 MG TABLET. PO SCH (20:44)
[2018-10-27 23:00] VITALS: BP 134/64
[2018-10-28 03:00] VITALS: BP 124/52
[2018-10-28 06:08] LABS: BASO % 1 % (0-3); EOS # 0.2 x10^3/uL (0.0-0.7); EOS % 2 % (0-3); HEMATOCRIT 34.8 % (39.0-53.0); HEMOGLOBIN 12.1 g/dL (13.0-17.5); LYMPH # 1.3 x10^3/uL (1.0-4.8); LYMPH % 16 % (24-48); MEAN CORPUSCULAR HEMOGLOBIN 33 pg (25-35); MEAN CORPUSCULAR HGB CONC 35 g/dL (31-37); MEAN CORPUSCULAR VOLUME 94 fL (79-100); MONO # 0.6 x10^3/uL (0.0-1.1); MONO % 7 % (0-9); NEUT # 5.7 x10^3/uL (1.8-7.7); NEUT % 74 % (31-73); PLATELET COUNT 148 x10^3/uL (140-400); RED BLOOD COUNT 3.71 x10^6/uL (4.30-5.70); RED CELL DISTRIBUTION WIDTH 13.9 % (11.5-14.5); WHITE BLOOD COUNT 7.8 x10^3/uL (4.0-11.0)
[2018-10-28 06:25] LABS: CALCIUM 8.9 mg/dL (8.5-10.1); CREATININE 1.1 mg/dL (0.7-1.3); GFR 63.6; POTASSIUM 3.5 mmol/L (3.5-5.1)
[2018-10-28 07:00] VITALS: BP 132/82
--- NOTE | 2018-10-28 08:24 | NUR ---
SW following pt. Spoke with pt's sister in law, Al regarding SNU, options and insurance coverage. Al chose [facility]. Referral faxed and pt acceptance/admission pending. Will continue to follow. Addendum: 10/28/18 at 1204 by TAMRA URIARTE SW following pt. PP declined to take pt stating pt needs LTC placement. Left a message to Pt's sister in , Al, phone: [phone] requesting a call back.
[2018-10-28] MEDS: POTASSIUM CHLORIDE 20 MEQ TABLET.ER. PO SCH (09:05)
[2018-10-28] MEDS: CITALOPRAM 20 MG TABLET. PO SCH (09:06)
[2018-10-28] MEDS: METOPROLOL SUCC 24HR ER 50 MG TAB.ER.24H. PO SCH (09:06)
[2018-10-28] MEDS: ASPIRIN CHEWABLE 81 MG TABLET. PO SCH (09:06)
[2018-10-28] MEDS: CHOLECALCIFEROL (VITAMIN D3) 5,000 UNIT CAPSULE PO SCH (09:06)
[2018-10-28] MEDS: ENOXAPARIN 30 MG/0.3 ML SYRINGE. SQ SCH (09:06)
[2018-10-28 11:00] VITALS: BP 130/60
[2018-10-28 15:00] VITALS: BP 117/54
--- NOTE | 2018-10-28 15:54 | NUR ---
SW following pt. Discussed with Pt's sister in law about other options and she [facility]. Referral faxed and pt is accepted. Insurance auth for SNU pending. Discussed with RN. Will continue to follow.
[2018-10-28] MEDS: cefTRIAXone IV Push 1 GM VIAL. IVP SCH (17:54)
[2018-10-28 19:00] VITALS: BP 157/61
--- NOTE | 2018-10-28 19:43 | PDOC ---
PROGRESS NOTES Subjective Subjective Patient improving. PT and OT modalities recommend skilled care. Objective Objective Vital Signs Date Time Temp Pulse Resp B/P (MAP) Pulse Ox O2 Delivery O2 Flow Rate FiO2 10/28/18 15:00 98.0 54 18 117/54 (75) 97 Nasal Cannula 2.0 98.0 Intake and Output 10/28/18 07:00 Intake Total 2950 ml Balance 2950 ml Intake Oral 1150 ml IV Total 1800 ml # Voids 4 Physical Exam Abdomen: Normal bowel sounds Heart: Regular rate Extremities: No edema General: Alert Lungs: Clear to auscultation Assessment Assessment Problems Medical Problems: (1) Acute on chronic renal failure Status: Acute (2) Altered mental status Status: Acute (3) Debilitated Status: Chronic (4) Hypomagnesemia Status: Acute (5) Lactic acidosis Status: Acute (6) UTI (urinary tract infection) Status: Acute (7) Weakness Status: Acute 1. [id number]-[id number] renal failure. 2. Weight loss. 3. Debilitation. 4. Lactic acidosis. 5. Hypomagnesemia. 6. Hematuria, suspected urinary tract infection. 7. Major depression Plan Plan of Care Continue antibiotics. Proceed with PT and OT modalities. Transfer to [facility] and subsequent shelter care. Comment Review of Relevant I have reviewed the following items martin (where applicable) has been applied. Labs Laboratory Tests Test 10/27/18 07:42 10/27/18 11:37 10/27/18 17:10 10/27/18 21:20 Glucose (Fingerstick) 105 mg/dL (70-99) 103 mg/dL (70-99) 114 mg/dL (70-99) 107 mg/dL (70-99) Test 10/28/18 05:05 10/28/18 07:41 10/28/18 10:37 10/28/18 16:29 White Blood Count 7.8 x10^3/uL (4.0-11.0) Red Blood Count 3.71 x10^6/uL (4.30-5.70) Hemoglobin 12.1 g/dL (13.0-17.5) Hematocrit 34.8 % (39.0-53.0) Mean Corpuscular Volume 94 fL (79-100) Mean Corpuscular Hemoglobin 33 pg (25-35) Mean Corpuscular Hemoglobin Concent 35 g/dL (31-37) Red Cell Distribution Width 13.9 % (11.5-14.5) Platelet Count 148 x10^3/uL (140-400) Neutrophils (%) (Auto) 74 % (31-73) Lymphocytes (%) (Auto) 16 % (24-48) Monocytes (%) (Auto) 7 % (0-9) Eosinophils (%) (Auto) 2 % (0-3) Basophils (%) (Auto) 1 % (0-3) Neutrophils # (Auto) 5.7 x10^3/uL (1.8-7.7) Lymphocytes # (Auto) 1.3 x10^3/uL (1.0-4.8) Monocytes # (Auto) 0.6 x10^3/uL (0.0-1.1) Eosinophils # (Auto) 0.2 x10^3/uL (0.0-0.7) Basophils # (Auto) 0.0 x10^3/uL (0.0-0.2) Sodium Level 139 mmol/L (136-145) Potassium Level 3.5 mmol/L (3.5-5.1) Chloride Level 105 mmol/L (98-107) Carbon Dioxide Level 27 mmol/L (21-32) Anion Gap 7 (6-14) Blood Urea Nitrogen 19 mg/dL (8-26) Creatinine 1.1 mg/dL (0.7-1.3) Estimated GFR (Cockcroft-Gault) 63.6 Glucose Level 139 mg/dL (70-99) Calcium Level 8.9 mg/dL (8.5-10.1) Glucose (Fingerstick) 92 mg/dL (70-99) 119 mg/dL (70-99) 98 mg/dL (70-99) Laboratory Tests Test 10/27/18 21:20 10/28/18 05:05 10/28/18 07:41 10/28/18 10:37 Glucose (Fingerstick) 107 mg/dL (70-99) 92 mg/dL (70-99) 119 mg/dL (70-99) White Blood Count 7.8 x10^3/uL (4.0-11.0) Red Blood Count 3.71 x10^6/uL (4.30-5.70) Hemoglobin 12.1 g/dL (13.0-17.5) Hematocrit 34.8 % (39.0-53.0) Mean Corpuscular Volume 94 fL (79-100) Mean Corpuscular Hemoglobin 33 pg (25-35) Mean Corpuscular Hemoglobin Concent 35 g/dL (31-37) Red Cell Distribution Width 13.9 % (11.5-14.5) Platelet Count 148 x10^3/uL (140-400) Neutrophils (%) (Auto) 74 % (31-73) Lymphocytes (%) (Auto) 16 % (24-48) Monocytes (%) (Auto) 7 % (0-9) Eosinophils (%) (Auto) 2 % (0-3) Basophils (%) (Auto) 1 % (0-3) Neutrophils # (Auto) 5.7 x10^3/uL (1.8-7.7) Lymphocytes # (Auto) 1.3 x10^3/uL (1.0-4.8) Monocytes # (Auto) 0.6 x10^3/uL (0.0-1.1) Eosinophils # (Auto) 0.2 x10^3/uL (0.0-0.7) Basophils # (Auto) 0.0 x10^3/uL (0.0-0.2) Sodium Level 139 mmol/L (136-145) Potassium Level 3.5 mmol/L (3.5-5.1) Chloride Level 105 mmol/L (98-107) Carbon Dioxide Level 27 mmol/L (21-32) Anion Gap 7 (6-14) Blood Urea Nitrogen 19 mg/dL (8-26) Creatinine 1.1 mg/dL (0.7-1.3) Estimated GFR (Cockcroft-Gault) 63.6 Glucose Level 139 mg/dL (70-99) Calcium Level 8.9 mg/dL (8.5-10.1) Test 10/28/18 16:29 Glucose (Fingerstick) 98 mg/dL (70-99) Medications Current Medications Sodium Chloride 1,000 ml @ 1,000 mls/hr 1X ONCE IV Last administered on 10/26/18at 17:44; Start 10/26/18 at 17:15; Stop 10/26/18 at 18:14; Status DC Ceftriaxone Sodium (Rocephin) 1 gm 1X ONCE IVP Last administered on 10/26/18 19:22; Start 10/26/18 at 18:15; Stop 10/26/18 at 18:16; Status DC Acetaminophen (Tylenol) 1,000 mg PRN Q6HRS PRN PO MILD PAIN 1-3 Last ad ministered on 10/26/18 22:27; Start 10/26/18 at 21:15 Donepezil HCl (Aricept) 10 mg HS PO Last administered on 10/27/18 20:44; Start 10/26/18 at 22:00 Metoprolol Succinate (Toprol Xl) 50 mg DAILY PO Last administered on 10/28/18 09:06; Start 10/27/18 at 09:00 Vitamin D (Vitamin D3) 5,000 unit DAILY PO Last administered on 10/28/18 09:06; Start 10/27/18 at 09:00 Citalopram Hydrobromide (CeleXA) 20 mg DAILY PO Last administered on 10/28/18 09:06; Start 10/27/18 at 09:00 Sodium Chloride 1,000 ml @ 80 mls/hr [id number] IV Last administered on 10/26/18 22:27; Start 10/26/18 at 21:30; Stop 10/27/18 at 11:54; Status DC Sodium Chloride 1,000 ml @ 100 mls/hr Q10H IV Last administered on 10/27/18 09:02; Start 10/27/18 at 07:04; Stop 10/27/18 at 17:03; Status DC Enoxaparin Sodium (Lovenox 30mg Syringe) 30 mg Q24H SQ Last administered on 10/28/18 09:06; Start 10/27/18 at 08:00 Ceftriaxone Sodium (Rocephin) 1 gm Q24H IVP Last administered on 10/28/18 17:54; Start 10/27/18 at 18:00 Aspirin (Children'S Aspirin) 81 mg DAILY PO Last administered on 10/28/18 09:06; Start 10/27/18 at 09:00 Lorazepam (Ativan) 0.5 mg PRN Q4HRS PRN PO ANXIETY / AGITATION; Start 10/27/18 at 07:15 Potassium Chloride (Klor-Con) 20 meq DAILY PO Last administered on 10/28/18at 09:06; Start 10/27/18 at 09:00 Atorvastatin Calcium (Lipitor) 10 mg QHS PO Last administered on 10/27/18at 20:44; Start 10/27/18 at 21:00 Active Scripts Active Klor-Con M20 (Potassium Chloride) 20 Meq Tab.er.prt 20 Meq PO DAILY 30 Days Ativan (Lorazepam) 0.5 Mg Tablet 0.5 Mg PO PRN Q4HRS PRN 30 Days Acetaminophen 500 Mg Tablet 1,000 Mg PO PRN Q6HRS PRN 30 Days Reported Aspirin 81 Mg Tab.chew 1 Tab PO DAILY Donepezil Hcl 10 Mg Tablet 10 Mg PO HS Hydrochlorothiazide Tablet (Hydrochlorothiazide) 12.5 Mg Tablet 1 Tab PO DAILY Escitalopram Oxalate 10 Mg Tablet 1 Tab PO DAILY Vitamin D3 (Cholecalciferol (Vitamin D3)) 5,000 Unit Tablet 1 Tab PO DAILY Lovastatin 40 Mg Tablet 1 Tab PO DAILY Metoprolol Succinate 50 Mg Tab.er.24h 50 Mg PO Vitals/I & O Vital Sign - Last 24 Hours 10/27/18 10/27/18 10/28/18 10/28/18 20:00 23:00 03:00 07:00 Temp 97.6 97.6 97.9 97.6 97.6 97.9 Pulse 59 58 56 Resp 18 18 18 B/P (MAP) 134/64 (87) 124/52 (76) 132/82 (99) Pulse Ox 98 97 95 O2 Delivery Nasal Cannula Nasal Cannula Nasal Cannula Nasal Cannula O2 Flow Rate 2.0 2.0 2.0 2.0 10/28/18 10/28/18 10/28/18 10/28/18 08:00 09:06 11:00 15:00 Temp 98.0 98.0 98.0 98.0 Pulse 56 58 54 Resp 18 18 B/P (MAP) 132/82 130/60 (83) 117/54 (75) Pulse Ox 97 97 O2 Delivery Nasal Cannula Nasal Cannula Nasal Cannula O2 Flow Rate 2.0 2.0 2.0 Intake and Output 10/27/18 10/27/18 10/28/18 15:00 23:00 07:00 Intake Total 1500 ml 1100 ml 350 ml Balance 1500 ml 1100 ml 350 ml DAI HARRISON MD Oct 28, 2018 19:43
[2018-10-28] MEDS: DONEPEZIL HCL 10 MG TABLET. PO SCH (21:01)
[2018-10-28] MEDS: ATORVASTATIN CALCIUM 10 MG TABLET. PO SCH (21:01)
[2018-10-28 22:48] VITALS: BP 139/71
[2018-10-29 02:51] VITALS: BP 159/59
[2018-10-29 07:00] VITALS: BP 157/59
[2018-10-29] MEDS: CITALOPRAM 20 MG TABLET. PO SCH (08:30)
[2018-10-29] MEDS: ASPIRIN CHEWABLE 81 MG TABLET. PO SCH (08:30)
[2018-10-29] MEDS: ENOXAPARIN 30 MG/0.3 ML SYRINGE. SQ SCH (08:30)
[2018-10-29] MEDS: METOPROLOL SUCC 24HR ER 50 MG TAB.ER.24H. PO SCH (08:30)
[2018-10-29] MEDS: CHOLECALCIFEROL (VITAMIN D3) 5,000 UNIT CAPSULE PO SCH (08:30)
[2018-10-29] MEDS: POTASSIUM CHLORIDE 20 MEQ TABLET.ER. PO SCH (08:30)
[2018-10-29 10:54] VITALS: BP 150/61
--- NOTE | 2018-10-29 12:45 | SNU/HH DC ---
DISCHARGE ORDERS DISCHARGE INFORMATION: DISCHARGE DATE: Oct 29, 2018 FINAL DIAGNOSIS Problems Medical Problems: (1) Acute on chronic renal failure Status: Acute (2) Altered mental status Status: Acute (3) Debilitated Status: Chronic (4) Hypomagnesemia Status: Acute (5) Lactic acidosis Status: Acute (6) UTI (urinary tract infection) Status: Acute (7) Weakness Status: Acute CONDITION ON DISCHARGE: Stable CODE STATUS: Code Status: Full SNF: SNF STAY <30 DAYS: Yes POST DISCHARGE ORDERS: ACTIVITY ORDERS: Activity as tolerated WEIGHT BEARING STATUS: As tolerated DIET AFTER DISCHARGE: Cardiac TREATMENT/EQUIPMENT ORDERS: ADAPTIVE EQUIPMENT NEEDED: None Physical Therapy For: Evalulation/Treatment Occupational Therapy For: Evaluation/Treatment DISCHARGE MEDICATIONS: Home Meds Active Scripts Potassium Chloride (KLOR-CON M20) 20 Meq Tab.er.prt, 20 MEQ PO DAILY for potassium for 30 Days, #30 TAB.SR Prov:DEDRA JIMENES MD 02/20/18 Lorazepam (ATIVAN) 0.5 Mg Tablet, 0.5 MG PO PRN Q4HRS PRN for ANXIETY / AGITATION for 30 Days, TAB Prov:DEDRA JIMENES MD 02/20/18 Acetaminophen (ACETAMINOPHEN) 500 Mg Tablet, 1000 MG PO PRN Q6HRS PRN for pain for 30 Days, TAB Prov:DEDRA JIMENES MD 02/20/18 Reported Medications Aspirin (ASPIRIN) 81 Mg Tab.chew, 1 TAB PO DAILY for thinner, #30 TAB 3 Refills 10/26/18 Donepezil Hcl (DONEPEZIL HCL) 10 Mg Tablet, 10 MG PO HS for memory, TAB 10/26/18 Hydrochlorothiazide (HYDROCHLOROTHIAZIDE TABLET) 12.5 Mg Tablet, 1 TAB PO DAILY for HTN, #30 TAB 5 Refills 02/17/18 Escitalopram Oxalate (ESCITALOPRAM OXALATE) 10 Mg Tablet, 1 TAB PO DAILY for depression, #30 TAB 3 Refills 02/17/18 Cholecalciferol (Vitamin D3) (VITAMIN D3) 5,000 Unit Tablet, 1 TAB PO DAILY for dietary supplement, #30 TAB 02/17/18 Lovastatin (LOVASTATIN) 40 Mg Tablet, 1 TAB PO DAILY for high cholesterol, #30 TAB 5 Refills 02/17/18 Metoprolol Succinate (Metoprolol Succinate) 50 Mg Tab.er.24h, 50 MG PO, TAB.SR 2/13/18 ADI HARRISON MD Oct 29, 2018 12:44
[2018-10-29 14:54] VITALS: BP 143/64
--- NOTE | 2018-10-29 16:31 | NUR ---
SW following pt. Insurance has approved SNU. Orders faxed to [facility]. Pt will transport via facility arranged w/c van at 1730. Pt's sister in law, Al notified of plan and agreeable. EAMON notified.
--- NOTE | 2018-10-29 17:29 | NUR ---
Discharge Note: PT DISCHARGED TO [facility]. PT LEFT FACILITY VIA TRANSPORT VAN AT 1725. PT STABLE AND ALERT UPON DISCHARGE. PT PIV REMOVED FROM [facility] WITHOUT COMPLICATIONS. REPORT CALLED TO VANDA KNUTSON AT [facility]. DISCHARGE MEDICATIONS, DISCHARGE INSTRUCTIONS, AND FOLLOW-UP CARE GIVEN IN REPORT. NO CONCERNS VOICED AT THIS TIME. [address] Discharge instructions and discharge home medications reviewed with Patient and a copy given. All questions have been answered and understanding verbalized.
--- NOTE | 2018-10-29 21:37 | DS ---
DATE OF DISCHARGE: 10/29/2018 ADMITTING DIAGNOSES: 1. Acute on chronic renal failure. 2. Weight loss. 3. Debilitation. 4. Lactic acidosis. 5. Hypomagnesemia. 6. Urinary tract infection. 7. Mild dementia and major depression. HISTORY OF PRESENT ILLNESS AND HOSPITAL COURSE: This patient is an 87-year-old male who is failing and found down at home, was brought to the office and was unable to care for himself. He had evidence of dehydration and possible rhabdomyolysis from being down at home as well as hematuria with suspected UTI. He was admitted to the Emergency Room for further evaluation, started on IV fluids and treated with IV antibiotics. Urine culture turned out negative and antibiotics were discontinued. The patient improved dramatically with IV fluids but was still unable to care for himself. PT and OT evaluated the patient and deemed the patient in need of skilled therapy. He was transferred [facility] for continued evaluation and care and possible prison placement post skilled therapy. DISCHARGE MEDICATIONS: As follows: Tylenol p.r.n. q.6, aspirin 81 mg daily, vitamin D 5000 units daily, benazepril 10 mg daily, escitalopram 10 mg daily, hydrochlorothiazide 12.5 mg daily, Ativan 0.5 q.4 p.r.n., lovastatin 40 mg daily, metoprolol 50 mg daily, potassium 20 mEq daily. ADI HARRISON MD DR: MAXIMO/robin JOB#: [id number] / [id number]
== END 2018-10-29 17:31 | DRG 689 ==
LOC: ER 15:22 → 5 SOUTH 18:19
PROVIDERS: ADMIT Family Medicine; ATTEND Family Medicine
DX: N39.0 Urinary tract infection, site not specified (principal); N17.0 Acute kidney failure with tubular necrosis; M62.82 Rhabdomyolysis; E87.2 Acidosis; E11.22 Type 2 diabetes mellitus with diabetic chronic kidney disease; E78.00 Pure hypercholesterolemia, unspecified; E83.42 Hypomagnesemia; E86.0 Dehydration; N18.9 Chronic kidney disease, unspecified; R63.4 Abnormal weight loss; F03.90 Unspecified dementia, unspecified severity, without behavioral disturbance, psychotic disturbance, mood disturbance, and anxiety; F32.9 Major depressive disorder, single episode, unspecified; F41.9 Anxiety disorder, unspecified; I12.9 Hypertensive chronic kidney disease with stage 1 through stage 4 chronic kidney disease, or unspecified chronic kidney disease; I25.10 Atherosclerotic heart disease of native coronary artery without angina pectoris; I25.2 Old myocardial infarction; Z86.73 Personal history of transient ischemic attack (TIA), and cerebral infarction without residual deficits; Z68.21 Body mass index [BMI] 21.0-21.9, adult
CPT/HCPCS: 36415; 71045; 80048; 80053; 81001; 82553; 82962; 83605; 83690; 83735; 83874; 83880; 84484; 85025; 85610; 85730; 87086; 93005; 96361; 96374; J0696; J1650; J7030; 97110; 97116; 97530; 97535; 99285-25; G0378